=== PATIENT | male | born 1950 | race Two or more races ===

== ENCOUNTER 2021-09-25 09:52 | Inpatient (IN) | payer OTHER ==
[~2021-09-25] VITALS: Ht 182.9 cm; Wt 99.8 kg
--- NOTE | 2021-09-25 10:04 | NUR ---
SE RECIBE PTE ALERTA Y ORIENTADO X3,REFIERIDO POR EL DR.SANCHEZ SOTO EL SAMUEL 2021,PTE REFIERE QUE TENIA EN ROBERTA MOMENTO A HEMOGLOBINA EN 8.6,PTE TIENE OJOS AMARILLENTOS,PIERNAS INFLAMADAS,DEBILIDAD.
[2021-09-25] MEDS ORDERED: GRALISE600 MG PO (10:09)
[2021-09-25] MEDS ORDERED: GLIMEPIRIDE2 MG (10:09)
--- NOTE | 2021-09-25 12:02 | NUR ---
PACIENTE EVALUADO POR DR MASTERSON QUI[place] [facility], SE ORIENTA A PACIENTE SOBRE EL MISMO Y REFIERE ENTENDER. SE COLECTAN MUESTRAS DE LABORATORIO BAJO MEDIDAS ASEPTICAS, SE CANALIZA PACIENTE X2 EN RA CON ANGIOS # 20, LOS MISMOS PATENTES, LIBRES DE EDEMA Y ERITEMA. SE SILVER REQUICION DE RO PARA 2 UNIDADES PRBC FRANCIONADAS AND HOLD. SE LLAMA A BANCO DE RO DONDE PERSONAL DE TURNO INDICA QUE PACIENTE NO TIENE RECORD PREVIO. 11:30AM: SE LLAMA [place] A BANCO DE RO Y SE LE NOTIFICA MS BERYL QUE LA REQUICION DE RO SE DEJO EN EL LABORATORIO. SE MANTIENE PACIENTE BAJO OBSERVACION POR CAMBIOS SIGNIFICATIVOS EN [place] MEDICO.
--- NOTE | 2021-09-25 14:35 | NUR ---
SE LLAMA A BANCO DE RO Y SE LE NOTIFICA A MS BAUZO ACTIVACION DE 2 UNIDADES DE PRBC'S FRACCIONADA QUE SE ENCONTRABANA EN HOLD.
[2021-09-27] MEDS ORDERED: OMEPRAZOLE40 MG (15:06)
[2021-09-27] MEDS ORDERED: ALPRAZOLAM1 MG (15:06)
== END 2021-09-30 12:50 | disposition home or self-care (01) | DRG 809 ==
LOC: ER 09:52 → SEC-K 19:08 → MEDJ 09-26 16:12
PROVIDERS: ADMIT Internal Medicine; ATTEND Internal Medicine
PROC: 30233N1 Transfusion of Nonautologous Red Blood Cells into Peripheral Vein, Percutaneous Approach (ICD-10-PCS; principal; 2021-09-26)
DX: D59.4 Other nonautoimmune hemolytic anemias (principal); J90 Pleural effusion, not elsewhere classified; K70.31 Alcoholic cirrhosis of liver with ascites; E80.6 Other disorders of bilirubin metabolism; D69.6 Thrombocytopenia, unspecified; E11.9 Type 2 diabetes mellitus without complications; I10 Essential (primary) hypertension; K80.20 Calculus of gallbladder without cholecystitis without obstruction; Z79.84 Long term (current) use of oral hypoglycemic drugs

== ENCOUNTER 2021-11-25 10:59 | Inpatient (IN) | payer OTHER ==
[~2021-11-25] VITALS: Ht 182.9 cm; Wt 99.8 kg
[~2021-11-25 10:59] MED LIST: ALPRAZOLAM1 MG; GLIMEPIRIDE2 MG; GRALISE600 MG PO; OMEPRAZOLE40 MG
--- NOTE | 2021-11-25 11:52 | NUR ---
PTE SE RECIBE EN [place], ALERTA Y ORIENTADO X 3. PTE VERBALIZA DEBILIDAD MUSCUCLAR EN AMBAS PIERNAS.
[2021-11-25] MEDS ORDERED: FUROSEMIDE20 MG PO (11:53)
[2021-11-25] MEDS ORDERED: ALDACTONE25 MG PO (11:54)
[2021-11-25] MEDS ORDERED: LASIX20 MG PO (11:55)
--- NOTE | 2021-11-25 14:56 | NUR ---
MASCULINO ALERTA Y ORIENTADO X3 EVALUADO POR DRA GIL QUIEN [place] [facility]. SE EDUCA A PTE Y REFIERE ENTENDER. SE COLECTAN MUESTRAS DE RO BAJO MEDIDAS ASEPTICAS Y SE ADMINISTRAN MEDICAMENTOS DEVAN ORDEN MEDICA. PENDIENTE CT.
--- NOTE | 2021-11-25 18:13 | NUR ---
PTE ALERTA EN COMPANIA DE FAMILIAR. SE ADMINISTRA MEDICAMENTO DEVAN ORDEN MEDICA. SE REALIZA SILVER DE MUESTRA DE RO TYPE AND CROSSMATCH DE TRANSFUSION DE RO DEVAN ORDENA DR. GIL. SE REALIZA LLAMADA TELEFONICA A BANCO DE RO Y SE NOTIFICA A LIC KEARNEY A LAS 5:55PM SOLICITUD DE 2 UNIDADES DE PRBC FRACCIONADAS. SE ENTREGA TUBOS DE RO A LIC DEVEN DE LABORATORIO. SE VALIDA INFORMACION DE PTE Y COINCIDE. PTE CANALIZADO EN BRAZO DERECHO CON ANGIO #22 PATENTE SIN EDEMA NI ENROJECIMIENTO AL MOMENTO.
[2021-11-28] MEDS ORDERED: INTEGRA PLUS C1 EACH (09:44)
[2021-11-28] MEDS ORDERED: PANTOPRAZOLE SO40 MG (09:44)
[2021-11-28] MEDS ORDERED: FOLIC ACID1 MG (09:44)
[2021-11-28] MEDS ORDERED: CLONAZEPAM2 MG (09:44)
[2021-11-28] MEDS ORDERED: PYRIDOXINE HCL100 MG (09:44)
[2021-12-02] MEDS ORDERED: ALBUTEROL2.5 MG/3 M IH (19:01)
[2021-12-02] MEDS ORDERED: IPRATROPIU0.2 MG/1 M IH (19:02)
[2021-12-02] MEDS ORDERED: INTEGRA PLUS C1 EACH PO (19:02)
[2021-12-02] MEDS ORDERED: ALDACTONE25 MG PO (19:03)
[2021-12-02] MEDS ORDERED: ALPRAZOLAM1 MG PO (19:03)
[2021-12-02] MEDS ORDERED: LACTULOSE10 GM/152 PO (19:05)
[2021-12-02] MEDS ORDERED: LASIX20 MG PO (19:05)
[2021-12-02] MEDS ORDERED: HYDROCODONE-CH115 ML PO (19:06)
[2021-12-02] MEDS ORDERED: PANTOPRAZOLE SO40 MG PO (19:07)
== END 2021-12-02 21:23 | disposition home or self-care (01) | DRG 433 ==
LOC: ER 10:59 → SURG 18:58
PROVIDERS: ADMIT Internal Medicine Hematology & Oncology; ATTEND Internal Medicine Hematology & Oncology
PROC: B020ZZZ Computerized Tomography (CT Scan) of Brain (ICD-10-PCS; 2021-11-25)
PROC: 30243N1 Transfusion of Nonautologous Red Blood Cells into Central Vein, Percutaneous Approach (ICD-10-PCS; principal; 2021-11-26)
PROC: 02HV33Z Insertion of Infusion Device into Superior Vena Cava, Percutaneous Approach (ICD-10-PCS; 2021-11-26)
DX: K70.31 Alcoholic cirrhosis of liver with ascites (principal); N17.9 Acute kidney failure, unspecified; K76.82 Hepatic encephalopathy; N28.9 Disorder of kidney and ureter, unspecified; D64.9 Anemia, unspecified; E86.0 Dehydration; R53.81 Other malaise; J40 Bronchitis, not specified as acute or chronic; E11.9 Type 2 diabetes mellitus without complications

== ENCOUNTER 2022-09-03 13:59 | Inpatient (IN) | payer OTHER ==
[~2022-09-03] VITALS: Ht 182.9 cm; Wt 98.0 kg
[~2022-09-03 13:59] MED LIST changes: +ALBUTEROL2.5 MG/3 M IH; +ALDACTONE25 MG PO; +ALPRAZOLAM1 MG PO; +CLONAZEPAM2 MG; +FOLIC ACID1 MG; +FUROSEMIDE20 MG PO; +HYDROCODONE-CH115 ML PO; +INTEGRA PLUS C1 EACH; +INTEGRA PLUS C1 EACH PO; +IPRATROPIU0.2 MG/1 M IH; +LACTULOSE10 GM/152 PO; +LASIX20 MG PO; +PANTOPRAZOLE SO40 MG; +PANTOPRAZOLE SO40 MG PO; +PYRIDOXINE HCL100 MG
[2022-09-03] MEDS ORDERED: LASIX40 MG (14:16)
[2022-09-04] MEDS ORDERED: SPIRONOLACTONE50 MG (11:24)
[2022-09-04] MEDS ORDERED: GABAPENTIN600 MG (11:24)
== END 2022-09-06 14:24 | disposition home or self-care (01) | DRG 194 ==
LOC: ER 13:59 → MEDI 21:44
PROVIDERS: ADMIT Internal Medicine; ATTEND Internal Medicine
PROC: BW24ZZZ Computerized Tomography (CT Scan) of Chest and Abdomen (ICD-10-PCS; principal; 2022-09-03)
DX: J18.9 Pneumonia, unspecified organism (principal); E87.1 Hypo-osmolality and hyponatremia; J90 Pleural effusion, not elsewhere classified; N17.9 Acute kidney failure, unspecified; E11.22 Type 2 diabetes mellitus with diabetic chronic kidney disease; N18.9 Chronic kidney disease, unspecified; D63.1 Anemia in chronic kidney disease; I87.2 Venous insufficiency (chronic) (peripheral); K74.60 Unspecified cirrhosis of liver; Z79.84 Long term (current) use of oral hypoglycemic drugs

== ENCOUNTER 2023-01-10 10:13 | Inpatient (IN) | payer OTHER ==
[~2023-01-10] VITALS: Ht 182.9 cm; Wt 95.3 kg
[~2023-01-10 10:13] MED LIST changes: +GABAPENTIN600 MG; +LASIX40 MG; +SPIRONOLACTONE50 MG
[2023-01-10 13:00] LABS: PH,URINE 7.5 (5.0-8.0); URINE APPEARANCE Clear; URINE BILIRRUBIN Negative (NEGATIVE); URINE BLOOD Negative; URINE COLOR Yellow; URINE GLUCOSE Negative (NEGATIVE); URINE LEUKOCYTE Negative; URINE NITRATE Negative; URINE PROTEIN Negative (NEGATIVE); URINE UROBILINOGEN 0.2 E.U./dl
[2023-01-10 13:12] LABS: URINE EPITHELIAL CELLS 0.6 uL (0.0-38.8); URINE WBC 0.7 uL (0.0-23.2)
[2023-01-10 13:32] LABS: MEAN CELL VOLUME 99.8 fL (80.0-100.00); MEAN CORPUSCULAR HGB CONC 31.9 g/dl (32.0-36.0); RED BLOOD COUNT 1.66 M/uL (4.00-6.00); RED CELL DISTRIBUTION WIDTH 20.3 % (11.5-14.5)
[2023-01-10 13:46] LABS: HEMATOCRIT 16.6 % (39.0-48.0); MEAN CORPUSCULAR HEMOGLOBIN 31.9 pg (27.00-32.0)
[2023-01-10 14:01] LABS: INR 1.81; PARTIAL THROMBOPLASTIN TIME 30.8 SECONDS (22.0-34.0)
[2023-01-10 14:02] LABS: BILIRUBIN TOTAL 3.18 mg/dL (0.3-1.2); BILIRUBIN,CONJUGATED 1.24 mg/dL (0.0-0.2); BILIRUBIN,UNCONJUGATED 1.94 mg/dL (0.0-0.6); CREATININE SERUM 1.86 mg/dL (0.70-1.30); GFR 35.89; TOTAL PROTEIN 6.2 gm/dL (6.4-8.2)
[2023-01-10 14:03] LABS: PROTHROMBIN TIME 18.2 SECONDS (9.0-11.5)
[2023-01-10 14:07] LABS: HEMOGLOBIN 5.3 g/dL (13-16.00); POTASSIUM 6.01 mEq/L (3.5-5.1)
[2023-01-10 14:09] LABS: PLATELET COUNT 71 K/uL (150-450)
[2023-01-10] MEDS ORDERED: PHENERGAN25 MG/1 ML (16:22)
[2023-01-12 12:03] LABS: ALBUMIN 2.2 gm/dL (3.4-5.0); BILIRUBIN TOTAL 5.48 mg/dL (0.3-1.2); CREATININE SERUM 1.62 mg/dL (0.70-1.30); GFR 42.09; GLOBULINA 3.5 G/DL (2.4-3.5); POTASSIUM 4.14 mEq/L (3.5-5.1); TOTAL PROTEIN 5.7 gm/dL (6.4-8.2)
[2023-01-12 22:33] LABS: MEAN CELL VOLUME 91.4 fL (80.0-100.00); RED BLOOD COUNT 2.37 M/uL (4.00-6.00); RED CELL DISTRIBUTION WIDTH 22.9 % (11.5-14.5)
[2023-01-12 22:42] LABS: HEMOGLOBIN 7.2 g/dL (13-16.00); MEAN CORPUSCULAR HEMOGLOBIN 30.3 pg (27.00-32.0)
[2023-01-12 22:43] LABS: HEMATOCRIT 21.7 % (39.0-48.0); PLATELET COUNT 59 K/uL (150-450)
[2023-01-13 00:04] LABS: ALBUMIN 2.2 gm/dL (3.4-5.0); BILIRUBIN TOTAL 4.96 mg/dL (0.3-1.2); CREATININE SERUM 1.72 mg/dL (0.70-1.30); GFR 39.28; GLOBULINA 3.6 G/DL (2.4-3.5); POTASSIUM 5.11 mEq/L (3.5-5.1); TOTAL PROTEIN 5.8 gm/dL (6.4-8.2)
[2023-01-13 08:09] LABS: ALBUMIN 2.2 gm/dL (3.4-5.0); BILIRUBIN TOTAL 4.03 mg/dL (0.3-1.2); CREATININE SERUM 1.42 mg/dL (0.70-1.30); GFR 49.01; GLOBULINA 3.2 G/DL (2.4-3.5); POTASSIUM 3.97 mEq/L (3.5-5.1); TOTAL PROTEIN 5.4 gm/dL (6.4-8.2)
[2023-01-14 18:54] LABS: HEMATOCRIT 28.8 % (39.0-48.0); MEAN CELL VOLUME 93.8 fL (80.0-100.00); MEAN CORPUSCULAR HGB CONC 31.9 g/dl (32.0-36.0); RED BLOOD COUNT 3.07 M/uL (4.00-6.00); RED CELL DISTRIBUTION WIDTH 21.6 % (11.5-14.5)
[2023-01-14 19:48] LABS: HEMOGLOBIN 9.2 g/dL (13-16.00); MEAN CORPUSCULAR HEMOGLOBIN 29.9 pg (27.00-32.0); PLATELET COUNT 57 K/uL (150-450)
== END 2023-01-15 13:03 | disposition home or self-care (01) | DRG 433 ==
LOC: ER 10:13 → MEDI 19:22
PROVIDERS: General Practice; Internal Medicine; ADMIT Internal Medicine; ATTEND Internal Medicine
PROC: BW40ZZZ Ultrasonography of Abdomen (ICD-10-PCS; principal; 2023-01-10)
PROC: 30233N1 Transfusion of Nonautologous Red Blood Cells into Peripheral Vein, Percutaneous Approach (ICD-10-PCS; 2023-01-10)
DX: K74.60 Unspecified cirrhosis of liver (principal); D59.4 Other nonautoimmune hemolytic anemias; N17.9 Acute kidney failure, unspecified; D68.9 Coagulation defect, unspecified; D64.9 Anemia, unspecified; E11.22 Type 2 diabetes mellitus with diabetic chronic kidney disease; N18.9 Chronic kidney disease, unspecified; Z79.4 Long term (current) use of insulin; K76.82 Hepatic encephalopathy